=== PATIENT | female | born 1940 ===

== ENCOUNTER → 2017-06-02 | Outpatient (CLI) | payer MEDICARE, OTHER ==
--- NOTE | 2017-06-02 15:29 | REP ---
CHEST, TWO VIEWS: COMPARISON: 09/22/2012 There is no evidence of acute infiltrate. There is minimal basilar scarring. The heart is slightly enlarged. There is calcification an tortuosity of the thoracic aorta. The mediastinal silhouette is unchanged. 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 There are degenerative changes of the spine. IMPRESSION: No evidence of acute pulmonary disease. Signed by Sanjay Alberto MD 06/02/2017 04:47 P
== END ==
LOC: M WUC 14:54
PROVIDERS: ATTEND Nurse Practitioner Family
DX: R05 Cough (principal)